=== PATIENT | female | born 1955 | race Caucasian/White ===

== ENCOUNTER 2016-12-12 14:59 | Emergency (ER) | payer MEDICAID ==
[~2016-12-12] VITALS: Ht 160 cm; Wt 46.3 kg
--- NOTE | 2016-12-12 16:43 | Urgent Treatment Center Report ---
History of Present Issue Date/Time Seen by Provider 12/12/16 1642 Visit Reason Pt arrived:Walked Presenting Problem:PT C/O ITCHY WATERY EYES, RUNNY NOSE, HEAD CONGESTION, AND ACHINESS X3 DAYS Location if Accident: Onset of symptoms date/time:/ or onset unknown for:MEDICAL HX UNKNOWN Have you (or family members/close friends) recently traveled outside the [place]? N If Yes, where/when: Have you had exposure to infectious disease within the past month? TB? Other? Specify: c/o "my allergies are a mess". Typically well controlled w/ zyrtec daily and albuterol inhaler PRN. Ran out of both 2 days ago. PCP, Dr. Ballard has and has a new pt appt w/ Dr. Prado but not until 01/02/17. "I just need those medicines is all". Reports hx on bronchitis "due to allergies" and albuterol inhaler helps "when I feel it starting". Currently primarily rhinorrhea, nasal congestion, head pressure. No cough, chest congestion, SOA or wheezing. Source patient Exam Limitations no limitations ALLERGIES Coded Allergies: penicillin G (Intermediate, I-HIVES 11/30/15) Sulfa (Sulfonamide Antibiotics) (I-HIVES 11/30/15) codeine (NA-NAUSEA/VOMITING 11/30/15) Home Medications Active Scripts Docusate Sodium (Colace 100MG Cap) 100 MG PO DAILY #10 CAP Prov: 03/23/16 HYDROCODONE/ACETAMINOPHEN (Cotter 5-325 Tablet) 1 TAB PO Q6HP PRN pain #15 TAB Prov: 03/23/16 Reported Medications ALBUTEROL (Ventolin Hfa) 2 PUFF IH Q4HP PRN BREATHING BUDESONIDE/FORMOTEROL FUMARATE (Symbicort 160-4.5 Mcg Inhaler) 1 PUFF IH DAILY History Medical History General CAD? No Angina: No [place]: No Hypertension? No Hyperlipidemia? No CHF? No DVT? No PE? No COPD? Yes Asthma? No Anemia? No GERD? No Gastric ulcers? No GI Bleed? No Hernia? No Thyroid Problems? No Hypothyroidism? No CVA? No Seizures? No Diabetes? No Renal Insuffiency? No UTI? Yes Stones? Yes BPH? No GB Disease: Yes Nephritic Syndrome? No Asplenia? No Hepatitis? No Sickle Cell Disease? No Arthritis? No Migraines? No Cataracts? No Glaucoma? No MRSA? No HIV? No TB? No Anxiety? No Depression? No Cancer? No More? No Immunization HX DT/Tetanus < 1 Year Ago Flu NEVER Pneumonia NEVER Surgical Hx Previous Surgery?Y SURG L ARM D/T SPIDER BIT LYMPH NODE BIOPSY Tubal Ligation GALLBLADDER Family History Family HX Diabetes No CAD No Hypertension Yes Hyperlipidemia Yes Cancer No TB Yes Social History Smoking Hx Smoker: Current Every Day Smoker Tobacco: Yes Type Cigarettes Packs/day < 1 Pack Alcohol Alcohol: No Review of Systems All Other Systems Reviewed and Negative Constitutional denies fever, denies malaise, denies weakness Eyes other (itchy "just starting"), denies drainage ENT see HPI. denies: ear pain, throat pain. Respiratory see HPI Psychiatric/Neurological denies headache Physical Exam Vital Signs Vital Signs Date Time Temp Pulse Resp B/P Pulse O2 O2 Flow FiO2 Ox Delivery Rate 12/12 1518 97.9 76 18 98/72 99 General Appearance no apparent distress, thin Eye Exam - bilateral eye normal exam Ear, Nose, Throat normal ENT inspection (x/ mild nasal congestion) Neck non-tender, supple Respiratory Status No: respiratory distress, productive cough, non productive cough. Lung Sounds anterior: lungs clear. posterior: lungs clear. bilateral: lungs clear. Cardiovascular regular rate/rhythm, no peripheral edema, no murmur Neurologic alert, oriented x 3 Skin normal color, warm/dry Lymphatic no adenopathy Medical Decision Making LABS/Meds/Orders Pt receiving controlled substance in ED? No Departure Departure Time of Disposition 1709 Disposition DC Home or Self Care(routine) Clinical Impression Primary Impression: Environmental allergies Secondary Impressions: Encounter for medication refill, Hx of bronchitis Condition STABLE Referrals Eve GARDINER,Dino Melendez Keep new pt appt for 01/02/17. Return to [facility] for new or worsening symptoms in the meantime. NO REFERRAL (Family) Patient Instructions DI for Allergic Rhinitis Additional Instructions Restart your zyrtec. If you ever run out again, it is available Over the counter. Albuterol inhaler as needed keep scheduled new patient appointment. Discharge Counseling Counseled pt/family regarding diagnosis, medications/RX, home care, follow up needs Prescriptions Current Visit Scripts CETIRIZINE HCL (Cetirizine 10MG) 10 MG PO DAILY #30 TAB ALBUTEROL (Proventil Hfa Inhaler) 1-2 PUFF IH Q4-6H PRN PRN SOA, wheezing #1 CAN at 6925
[2016-12-12 17:11] VITALS: BP 98/72
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
--- OUTSIDE RECORDS SUMMARY | 2017-01-04 05:13 | External Medical Summary Rpt ---
Author Author ANURAG Liang, ANURAG Liang Organization [employer] Address Unknown Phone Unavailable
--- OUTSIDE RECORDS SUMMARY | 2017-01-04 05:13 | External Medical Summary Rpt ---
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 Role Phone ARNOLD, ARNOLD Unavailable Unavailable ARNOLD, ARNOLD Unavailable Unavailable ARNOLD FRANCIE, ARNOLD Unavailable Unavailable FRANCIE ARNOLD FRANCIE, ARNOLD Unavailable Unavailable FRANCIE BEINEKE KAZ, BEINEKE Unavailable Unavailable KAZ BART L, BART L Unavailable Unavailable BART L, BART L Unavailable Unavailable HANCOCK, HANCOCK Unavailable Unavailable CHALINO JAZMINE, CHALINO Unavailable Unavailable JAZMINE [facility] Unavailable Unavailable INC, R[facility] TELLES ZHEN, TELLES ZHEN Unavailable Unavailable TELLES ZHEN, TELLES ZHEN Unavailable Unavailable [facility], Unavailable Unavailable [facility] Unavailable Unavailable IMAGING ASS, [facility] Unavailable Unavailable LABS, [...] Unavailable SOKAN BAB, SOKAN BAB Unavailable Unavailable SOTINGEAGERONIMO KAZ, Unavailable Unavailable SOTINGEABREN LOVING Unavailable Unavailable BREN VICENTE Unavailable Unavailable Purpose Continuity of Care Document - 06-07-2013 through 2016 Problems Code Diagnosis DOS Provider Status [id number] PAIN IN 11-09-2016 [place] [facility] SHOULDER IMAGING ASS J0190 ACUTE 07-08-2016 [facility] SINUSITIS UNSPECIFIED J209 ACUTE 07-08-2016 [facility] BRONCHITIS UNSPECIFIED J069 ACUTE UPPER 06-18-2016 [facility] RESPIRATORY INFECTION UNSPECIFIED G19239 UNSPECIFIED 05-19-2016 [facility] DACRYOCYSTI TIS RT LACRIMAL PASSAGE J449 CHRONIC 03-23-2016 [facility]STRUCTIVE [facility] PULMONARY INC DISEASE UNS 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 SACROCOCCYG 03-23-2016 [place] EAL MEDICAL DISORDERS IMAGING ASS NEC V591GWI CONTUSION 03-23-2016 [facility] LOWER BACK PHYSICIANS, & PELVIS PLLC INITIAL ENCOUNTER X2213MP UNSPECIFIED 03-23-2016 [place] INJURY MEDICAL LOWER BACK IMAGING ASS INITIAL ENCOUNTER Z720 TOBACCO USE 03-23-2016 [facility] INC M779 ENTHESOPATH 02-02-2016 [facility] MARMOLEJO Y UNSPECIFIED J929 PLEURAL 12-18-2015 [place] [facility] MEDICAL WITHOUT IMAGING ASS ASBESTOS R7611 NONSPECIFIC 12-18-2015 [place] [facility] TUBERCULIN INC SKIN TEST W/O ACT TB R918 OTHER 12-18-2015 [place] NONSPECIFIC MEDICAL ABNORMAL IMAGING ASS FINDING OF LUNG FIELD F05345 PAIN IN 11-30-2015 [place] [facility] FOOT [facility] K8326UR CONTUSION 11-30-2015 [facility] OF RIGHT PHYSICIANS, FOOT PLLC INITIAL ENCOUNTER W01121R UNSPECIFIED 11-30-2015 [place] INJURY MEDICAL RIGHT FOOT IMAGING ASS INITIAL ENCOUNTER H524 PRESBYOPIA 10-26-2015 TELLES ZHEN 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 [facility] OF INC UNSPECIFIED SHOULDER J029 ACUTE 09-01-2015 [facility] PHARYNGITIS PHYSICIANS, PLLC UNSPECIFIED K5289 OTH SPEC 07-14-2015 [facility] MARMOLEJO NONINFECTIV E GASTROENTER ITIS & COLITIS T46290 PAIN IN 07-14-2015 [facility] UNSPECIFIED [facility] SHOULDER INC M5430 SCIATICA 06-24-2015 [facility] MARMOLEJO UNSPECIFIED SIDE 82493 OSTEOARTHRO 12-08-2014 [facility] MARMOLEJO S INVLV MX SITES BUT NOT SPEC GEN 63480 OTHER ACUTE 10-21-2014 [facility] PAIN [facility]YS[facility] 53733 OTHER 10-21-2014 [facility] KERATOSIS 7802 SYNCOPE AND 10-21-2014 [facility] COLLAPSE 2382 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[facility] UNCERTAIN PHYSICIANS BEHAVIOR OF GROUP SKIN 4660 ACUTE 08-23-2014 [facility] MARMOLEJO BRONCHITIS 54866 ASTHMA 04-26-2014 [facility] MARMOLEJO UNSPECIFIED WITH STATUS ASTHMATICUS 42694 PAIN IN 04-03-2014 [facility] JOINT, PHYSICIANS SHOULDER GROUP REGION 5589 OTH&UNSPEC 01-12-2014 SOKAN BAB NONINFECTIO US GASTROENTER ITIS&COLITI S 87136 DIARRHEA 01-12-2014 SOGORDONN BAB 53203 OBSTRUCTIVE 01-09-2014 [facility] MARMOLEJO CHRONIC BRONCHITIS WITH EXACERBATIO N 34641 UNS 01-09-2014 [facility] MARMOLEJO GASTRITIS&G ASTRODUODIT IS W/O MENTION HEMORR 7243 SCIATICA 11-07-2013 [facility] MARMOLEJO 16933 PAIN IN 10-28-2013 [facility] JOINT PELVIC REGION AND THIGH 3674 PRESBYOPIA 06-07-2013 [facility] ANG Medications Na ND Rx Da Fi Fi Am Da Di Ph RX Ph St me C No te ll ll ou ys ag ar # ys at rm s nt no ma ic us Or Da si cy ia de te s n re d CE 16 04 05 30 30 00 OH Ac TI 57 -2 -2 .0 00 L- ti RI 10 7 6- 00 08 MA ve ZI 40 20 20 83 RT NE 25 17 17 90 0 24 PH HC AR L MA 10 CY MG #5 91 TA BL ET FL 60 04 05 16 30 00 OH Ac UT 43 -2 -1 .0 00 L- ti IC 20 6 9- 00 07 MA ve 26 20 20 47 RT ON 41 17 17 85 E 5 00 PH VT AR OP MA CY 50 #5 MC 91 G SP RA Y VE 00 04 05 18 17 00 OH Ac NT 17 -2 -1 .0 00 L- ti OL 30 6- 9- 00 07 MA ve IN 68 20 20 42 RT 22 17 17 08 HF 0 98 PH A AR 90 MA CY MC G #5 IN 91 HOPE LE R SY 00 04 05 10 30 00 OH Ac MB 18 -2 -1 .1 00 L- ti IC 60 6 9 99 07 MA ve OR 37 20 20 42 RT T 02 17 17 08 16 0 96 PH 0- AR 4. MA 5 CY MC G #5 IN 91 HOPE LE R LE 68 04 05 10 10 00 OH Ac VO 38 -1 -1 .0 00 L- ti FL 20 4- 2- 00 07 MA ve OX 01 20 20 48 RT AC 60 17 17 23 IN 1 29 PH AR 50 MA 0 CY MG #5 TA 91 BL ET ME 59 04 05 21 6 00 OH Ac TH 74 -1 -1 .0 00 L- ti YL 60 4- 2- 00 07 MA ve VT 00 20 20 48 RT ED 10 17 17 23 NI 3 34 PH SO AR LO MA NE CY 4 #5 MG 91 DO SE PK BE 51 04 05 30 10 00 OH Ac NZ 22 -1 -1 .0 00 L- ti ON 40 4- 2- 00 07 MA ve AT 00 20 20 48 RT AT 16 17 17 23 E 0 45 PH 20 AR 0 MA MG CY CA #5 PS 91 UL E AZ 59 03 04 6. 5 00 OH Ac IT 76 -2 -2 00 00 L- ti HR 23 5- 1- 0 07 MA ve OM 06 20 20 47 RT YC 00 17 17 84 IN 1 98 PH AR 25 MA 0 CY MG #5 TA 91 BL ET BE 51 03 04 30 10 00 OH Ac NZ 22 -2 -2 .0 00 L- ti ON 40 5- 1 00 07 MA ve AT 00 20 20 47 RT AT 16 17 17 84 E 0 99 PH 20 AR 0 MA MG CY CA #5 PS 91 UL E FL 60 03 04 16 30 00 [facility] UT 43 -2 -2 .0 00 L- ti IC 20 5- 1- 00 07 MA ve 26 20 20 47 RT ON 41 17 17 85 E 5 00 PH VT AR OP MA CY 50 #5 MC 91 G SP RA Y AC 60 03 04 30 8 00 [facility] YC 50 -2 -2 .0 00 L- ti LO 50 5- 1- 00 07 MA ve 04 20 20 47 RT R 20 17 17 85 20 6 01 PH 0 AR MG MA CY CA PS #5 UL 91 E CE 16 03 04 30 30 00 [facility] TI 57 -2 -2 .0 00 L- ti RI 10 5- 1- 00 08 MA ve ZI 40 20 20 83 RT NE 25 17 17 87 0 01 PH HC AR L MA 10 CY MG #5 91 TA BL ET DO 00 02 03 20 10 00 [facility] XY 71 -2 -2 .0 00 L- ti CY 30 3- 4- 00 07 MA ve CL 42 20 20 47 RT IN 95 17 17 26 E 0 07 PH MO AR NO MA CY 10 0 #5 MG 91 CA P VE 00 02 03 18 17 00 [facility] NT 17 -2 -2 .0 00 L- ti OL 30 5- 4- 00 07 MA ve IN 68 20 20 42 RT 22 17 17 08 HF 0 98 PH A AR 90 MA CY MC G #5 IN 91 HOPE LE R SY 00 02 03 10 30 00 [facility] MB 18 -2 -2 .1 00 L- ti IC 60 5- 4- 99 07 MA ve OR 37 20 20 42 RT T 02 17 17 08 16 0 96 PH 0- AR 4. MA 5 CY MC G #5 IN 91 HOPE LE R IB 68 02 03 90 30 00 OH Ac UP 64 -2 -2 .0 00 L- ti RO 50 5- 4- 00 07 MA ve FE 53 20 20 47 RT N 15 17 17 30 80 4 09 PH 0 AR MG MA CY TA BL #5 ET 91 DO 00 12 01 10 10 00 OH Ac C- 60 -2 -2 .0 00 L- ti Q- 30 8- 0- 00 08 MA ve LA 15 20 20 83 RT CE 03 16 17 74 2 75 PH 10 AR 0 MA MG CY SO #5 FT 91 GE L HY 00 12 01 [address] 40 -2 -2 .0 00 L- ti OC 60 8- 0- 00 02 MA ve OD 12 20 20 23 RT ON 30 16 17 84 -A 1 78 PH CE AR TA MA CT CY NO PH #5 EN 91 5- 32 5 Procedures Procedure DOS Code Location Performer Comment RADEX 93471 [place] [facility] SHOULDER 7 MEDICAL COMPLETE IMAGING MINIMUM 2 ASS VIEWS RADEX 84636 [facility] SACRUM & 6 [facility] COCCYX INC INC MINIMUM 2 VIEWS RADIOLOGI 86367 [facility] C EXAM 6 [facility] CHEST 2 INC INC VIEWS FRONTAL&L ATERAL RADEX 50571 [facility] FOOT 6 [facility] COMPLETE INC INC MINIMUM 3 VIEWS OPHTH 47676 [facility] 6 XM&EVAL COMPRHNSV ESTAB PT 1/> OCCUPATIO 43944 [facility] SPR[facility] NAL 6 [facility] THERAPY INC INC EVALUATIO N INJ J0702 [facility] PETTEY BETAMETHA 6 PHYSICIAN DIGNA SONE S GROUP ACETATE & PHOSPHATE 3 MG ARTHROCEN 09718 [facility] PET[facility] TESIS 6 PHYSICIAN DIGNA ASPIR&/IN S GROUP J MAJOR JT/BURSA W/O US RADEX 05655 [place] JUANCARLOS SHOULDER 6 MEDICAL KAZ COMPLETE IMAGING MINIMUM 2 [place] [address] [facility], SURG 5 [facility] PATHOLOGY GROSS&JAZMINE ROSCOPIC EXAM EXC B9 67098 [facility] SCHULSTAD LESION 5 PHYSICIAN DEMETRA MRGN XCP S GROUP SK TG T/A/L 3.1-4.0 CM RADEX 17216 [facility] SHOULDER 4 [facility] COMPLETE INC INC MINIMUM 2 VIEWS OPHTH 63276 [facility] 4 ANG ANG XM&EVAL COMPRHNSV ESTAB PT 1/> Encounters Encounter Start End Date Code Location Performer Type Date HOSPITAL [facility] - 7 7 [facility] OUTPATIEN INC T OFFICE 90236 [facility] OUTPATIEN 7 7 T VISIT 15 MINUTES OFFICE 29704 [facility] OUTPATI[facility] 7 7 T VISIT 15 MINUTES OFFICE 45399 [facility] OUT[facility] 7 7 T VISIT 10 MINUTES EMERGENCY 22123 [facility] ARELLAN[facility] 6 6 [facility]IS[facility] HIGH/URGE NT SEVERITY EMERGENCY 15569 [facility] 6 6 [facility] DEPARTMEN INC T VISIT LIMITED/M [facility] R[facility] - 6 6 [facility] OUTPATIEN INC T OFFICE 90310 [facility] JONESPATIEN 6 6 FRANCIE FRANCIE T VISIT 15 MINUTES OFFICE 51467 [facility] IQBAL OUTPATIEN 6 6 FRANCIE FRANCIE T VISIT 15 MINUTES OFFICE 83854 [facility] IQBAL OUTPATIEN 6 6 [facility] FRANCIE T VISIT 15 MINUTES [facility] - 6 6 [facility] OUT[facility] INC T EMERGENCY 24719 LUCHO MAHAN 6 6 PHYSICIAN Maryuri [facility]CCURDY [facility]PART[facility] T VISIT MODERATE SEVERITY EMERGENCY 38576 [facility] 6 6 [facility] DEPART[facility] T VISIT LOW/MODER SEVERITY [facility] - 6 6 [facility] OUTPATI[facility] INC T OFFICE 16686 FARIDA FARIDA LÓPEZ 6 6 FRANCIE FRANCIE T VISIT 15 MINUTES OFFICE 00997 [facility] LYSEAN OUTPATIEN 6 6 FRANCIE FRANCIE T VISIT 15 MINUTES [facility]OSPITAL [facility]AL - 6 6 [facility] OUTPATIEN INC T OFFICE 31345 [facility] PETTEDonato OUTPATIEN 6 6 PHYSICIAN JAM T VISIT S GROUP 15 MINUTES EMERGENCY 94222 LUCHO ALLRED 6 6 PHYSICIAN JAZMINE [facility]PART[facility] T VISIT MODERATE SEVERITY [facility]OSP[facility] - 6 6 [facility] OUT[facility] INC T EMERGENCY 27787 RACHEAL 6 6 [facility] DEPARTMEN INC T VISIT LOW/MODER SEVERITY OFFICE 26585 [facility] PETTEY OUTPATIEN 6 6 PHYSICIAN JAM T VISIT S GROUP 15 MINUTES HOSPITAL RACHEAL - 6 6 [facility] OUTPATIEN INC T OFFICE 86830 FARIDA LYSEAN LÓPEZ 6 6 FRANCIE FRANCIE T VISIT 15 MINUTES OFFICE 21485 F[facility]IDA LYSEAN LÓPEZ 6 6 FRANCIE FRANCIE T VISIT 15 MINUTES OFFICE 92311 FARIDA LÓPEZ 6 6 FRANCIE FRANCIE T VISIT 15 MINUTES OFFICE 53208 FARIDA LÓPEZ 5 5 FRANCIE FRANCIE T VISIT 15 MINUTES OFFICE 36504 FARIDA LÓPEZ 5 5 FRANCIE FRANCIE T VISIT 15 MINUTES OFFICE 40312 FARIDA LÓPEZ 5 5 FRANCIE FRANCIE T VISIT 15 MINUTES EMERGENCY 93852 BART Salmeron 5 5 DEPARTMEN T VISIT HIGH/URGE NT SEVERITY OFFICE 66305 [facility] SCHULSTAD OUTPATIEN 5 5 PHYSICIAN CAM T NEW 20 S GROUP MINUTES OFFICE 07053 [facility] IQBAL OUTPATISUNNY 5 5 FRANCIE FRANCIE T VISIT 15 MINUTES OFFICE 16344 [facility] IQBAL OUTPATIEN 5 5 FRANCIE FRANCIE T VISIT 15 MINUTES OFFICE 37831 [facility] PETTEY OUTPATIEN 5 5 PHYSICIAN JAM T NEW 30 S GROUP MINUTES OFFICE 14448 [facility] IQBAL OUTPATIEN 5 5 FRANCIE FRANCIE T VISIT 15 MINUTES OFFICE 57157 FARIDA LÓPEZ 4 4 FRANCIE FRANCIE T VISIT 15 MINUTES [facility] RACHEAL - 4 4 [facility] OUTPATIEN INC T OFFICE 49810 FARIDA LÓPEZ 4 4 FRANCIE FRANCIE T VISIT 15 MINUTES EMERGENCY 44704 SOKAN BAB SOKAN BAB 4 4 DEPARTMEN T VISIT MODERATE SEVERITY OFFICE 51612 FARIDA LÓPEZ 4 4 FRANCIE FRANCIE T VISIT 15 MINUTES OFFICE 53511 FARIDA LÓPEZ 4 4 FRANCIE FRANCIE T NEW 30 MINUTES EMERGENCY 07372 BREN FOWLER 4 4 DEPARTMEN T VISIT MODERATE SEVERITY
--- OUTSIDE RECORDS SUMMARY | 2017-01-04 05:13 | External Medical Summary Rpt ---
Demographics Preferred Language Tajik Marital Status Unknown Yazdanism Affiliation Unknown Race Unknown Ethnic Group Unknown Author Author ANURAG Address Unknown Phone Immunization No patient found.
--- OUTSIDE RECORDS SUMMARY | 2017-01-04 05:13 | External Medical Summary Rpt ---
Author Author , ANURAG OSBORN Address Unknown Phone [email or web address] Care Team Providers Care Cigar Inspector Name Role Phone ARNOLD, ARNOLD Unavailable Unavailable ARNOLD, ARNOLD Unavailable Unavailable ARNOLD FRANCIE, ARNOLD Unavailable Unavailable FRANCIE ARNOLD FRANCIE, ARNOLD Unavailable Unavailable FRANCIE BEINEKE KAZ, BEINEKE Unavailable Unavailable KAZ BART L, BART L Unavailable Unavailable BART L, BART L Unavailable Unavailable HANCOCK, HANCOCK Unavailable Unavailable CHALINO JAZMINE, CHALINO Unavailable Unavailable JAZMINE [facility] Unavailable Unavailable INC, [facility] TELLES ZHEN, TELLES ZHEN Unavailable Unavailable TELLES ZHEN, TELLES ZHEN Unavailable Unavailable [facility], Unavailable Unavailable [facility] Unavailable Unavailable IMAGING ASS, [facility] [...] 2016 Problems Code Diagnosis DOS Provider Status [id number] PAIN IN 11-09-2016 [facility] J0190 ACUTE 07-08-2016 ARNOLD SINUSITIS UNSPECIFIED J209 ACUTE 07-08-2016 ARNOLD BRONCHITIS UNSPECIFIED J069 ACUTE UPPER 06-18-2016 ARNOLD RESPIRATORY INFECTION UNSPECIFIED I35907 UNSPECIFIED 05-19-2016 SCIFRES DACRYOCYSTI TIS RT LACRIMAL PASSAGE J449 CHRONIC 03-23-2016 [facility] PULMONARY INC DISEASE UNS 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 M779 ENTHESOPATH 02-02-2016 [facility] MARMOLEJO Y UNSPECIFIED J929 PLEURAL 12-18-2015 [facility] WITHOUT IMAGING ASS ASBESTOS R7611 NONSPECIFIC 12-18-2015 [facility] TUBERCULIN INC SKIN TEST W/O ACT TB R918 OTHER 12-18-2015 [facility] NONSPECIFIC MEDICAL ABNORMAL IMAGING ASS FINDING OF LUNG FIELD F93586 PAIN IN 11-30-2015 [facility] FOOT [facility] E5175EY CONTUSION 11-30-2015 [facility] OF RIGHT PHYSICIANS, FOOT PLLC INITIAL ENCOUNTER K27312T UNSPECIFIED 11-30-2015 [facility] INJURY [facility] RIGHT FOOT IMAGING ASS INITIAL ENCOUNTER H524 PRESBYOPIA 10-26-2015 TELLES ZHEN 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 [facility] OF INC UNSPECIFIED SHOULDER J029 ACUTE 09-01-2015 [facility] PHARYNGITIS [facility]ANS, PLLC UNSPECIFIED K5289 OTH SPEC 07-14-2015 [facility] MARMOLEJO NONINFECTIV E GASTROENTER ITIS & COLITIS P03606 PAIN IN 07-14-2015 [facility] UNSPECIFIED [facility] SHOULDER INC M5430 SCIATICA 06-24-2015 [facility] MARMOLEJO UNSPECIFIED SIDE 17960 OSTEOARTHRO 12-08-2014 [facility] MARMOLEJO S INVLV MX SITES BUT NOT SPEC GEN 61768 OTHER ACUTE 10-21-2014 [facility] PAIN [facility] 95891 OTHER 10-21-2014 [facility] KERATOSIS 7802 SYNCOPE AND 10-21-2014 BART L COLLAPSE 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..] CE 16 04 05 30 30 00 OK Ac TI 57 -2 -2 .0 00 L- ti RI 10 7 6- 00 08 MA ve ZI 40 20 20 83 RT NE 25 17 17 90 0 24 PH HC AR L MA 10 CY MG #5 91 TA BL ET FL 60 04 05 16 30 00 OK Ac UT 43 -2 -1 .0 00 L- ti IC 20 6 9- 00 07 MA ve 26 20 20 47 RT ON 41 17 17 85 E 5 00 PH ID AR OP MA CY 50 #5 MC 91 G SP RA Y VE 00 04 05 18 17 00 OK Ac NT 17 -2 -1 .0 00 L- ti OL 30 6- 9- 00 07 MA ve IN 68 20 20 42 RT 22 17 17 08 HF 0 98 PH A AR 90 MA CY MC G #5 IN 91 HOPE LE R SY 00 04 05 10 30 00 OK Ac MB 18 -2 -1 .1 00 L- ti IC 60 6 9 99 07 MA ve OR 37 20 20 42 RT T 02 17 17 08 16 0 96 PH 0- AR 4. MA 5 CY MC G #5 IN 91 HOPE LE R LE 68 04 05 10 10 00 OK Ac VO 38 -1 -1 .0 00 L- ti FL 20 4- 2- 00 07 MA ve OX 01 20 20 48 RT AC 60 17 17 23 IN 1 29 PH AR 50 MA 0 CY MG #5 TA 91 BL ET ME 59 04 05 21 6 00 OK Ac TH 74 -1 -1 .0 00 L- ti YL 60 4- 2- 00 07 MA ve ID 00 20 20 48 RT ED 10 17 17 23 NI 3 34 PH SO AR LO MA NE CY 4 #5 MG 91 DO SE PK BE 51 04 05 30 10 00 OK Ac NZ 22 -1 -1 .0 00 L- ti ON 40 4- 2- 00 07 MA ve AT 00 20 20 48 RT AT 16 17 17 23 E 0 45 PH 20 AR 0 MA MG CY CA #5 PS 91 UL E AZ 59 03 04 6. 5 00 OK Ac IT 76 -2 -2 00 00 L- ti HR 23 5- 1- 0 07 MA ve OM 06 20 20 47 RT YC 00 17 17 84 IN 1 98 PH AR 25 MA 0 CY MG #5 TA 91 BL ET BE 51 03 04 30 10 00 OK Ac NZ 22 -2 -2 .0 00 L- ti ON 40 5- 1 00 07 MA ve AT 00 20 20 47 RT AT 16 17 17 84 E 0 99 PH 20 AR 0 MA MG CY CA #5 PS 91 UL E FL 60 03 04 16 30 00 [facility] UT 43 -2 -2 .0 00 L- ti IC 20 5- 1- 00 07 MA ve 26 20 20 47 RT ON 41 17 17 85 E 5 00 PH ID AR OP MA CY 50 #5 MC 91 G SP RA Y AC 60 03 04 30 8 00 [facility] YC 50 -2 -2 .0 00 L- ti LO 50 5- 1- 00 07 MA ve 04 20 20 47 RT R 20 17 17 85 20 6 01 PH 0 AR MG MA CY CA PS #5 UL 91 E CE 16 03 04 30 30 00 [facility] TI 57 -2 -2 .0 00 L- ti RI 10 5- 1- 00 08 MA ve ZI 40 20 20 83 RT NE 25 17 17 87 0 01 PH HC AR L MA 10 CY MG #5 91 TA BL ET DO 00 02 03 20 10 00 [facility] XY 71 -2 -2 .0 00 L- ti CY 30 3- 4- 00 07 MA ve CL 42 20 20 47 RT IN 95 17 17 26 E 0 07 PH MO AR NO MA CY 10 0 #5 MG 91 CA P VE 00 02 03 18 17 00 [facility] NT 17 -2 -2 .0 00 L- ti OL 30 5- 4- 00 07 MA ve IN 68 20 20 42 RT 22 17 17 08 HF 0 98 PH A AR 90 MA CY MC G #5 IN 91 HOPE LE R SY 00 02 03 10 30 00 [facility] MB 18 -2 -2 .1 00 L- ti IC 60 5- 4- 99 07 MA ve OR 37 20 20 42 RT T 02 17 17 08 16 0 96 PH 0- AR 4. MA 5 CY MC G #5 IN 91 HOPE LE R IB 68 02 03 90 30 00 OK Ac UP 64 -2 -2 .0 00 L- ti RO 50 5- 4- 00 07 MA ve FE 53 20 20 47 RT N 15 17 17 30 80 4 09 PH 0 AR MG MA CY TA BL #5 ET 91 DO 00 12 01 10 10 00 OK Ac C- 60 -2 -2 .0 00 L- ti Q- 30 8- 0- 00 08 MA ve LA 15 20 20 83 RT CE 03 16 17 74 2 75 PH 10 AR 0 MA MG CY SO #5 FT 91 GE L HY 00 12 01 [address] 40 -2 -2 .0 00 L- ti OC 60 8- 0- 00 02 MA ve OD 12 20 20 23 RT ON 30 16 17 84 -A 1 78 PH CE AR TA MA [place] CY NO PH #5 EN 91 5- 32 5 Procedures Procedure DOS Code Location Performer Comment RADEX 10668 [facility] 7 MEDICAL COMPLETE IMAGING MINIMUM 2 ASS VIEWS RADEX 75673 [facility] SACRUM & 6 [facility] COCCYX INC INC MINIMUM 2 VIEWS RADIOLOGI 05261 [facility] C EXAM 6 [facility] CHEST 2 INC INC VIEWS FRONTAL&L ATERAL RADEX 90602 [facility] FOOT 6 [facility] COMPLETE INC INC MINIMUM 3 VIEWS OPHTH 37665 [facility] 6 XM&EVAL COMPRHNSV ESTAB PT 1/> OCCUPATIO 04436 [facility] NAL 6 [facility] THERAPY INC INC EVALUATIO N INJ J0702 [facility] PETTEY BETAMETHA 6 PHYSICIAN DIGNA SONE S GROUP ACETATE & PHOSPHATE 3 MG ARTHROCEN 11332 [facility] TESIS 6 PHYSICIAN DIGNA ASPIR&/IN S GROUP J MAJOR JT/BURSA W/O US RADEX 51530 [facility] JUANCARL[facility] SHOULDER 6 MEDICAL KAZ COMPLETE IMAGING MINIMUM [place] [address] [facility] SURG 5 [facility] PATHOLOGY GROSS&JAZMINE ROSCOPIC EXAM EXC B9 21146 [facility] SCHULSTAD LESION 5 PHYSICIAN DEMETRA MRGN XCP S GROUP SK TG T/A/L 3.1-4.0 CM RADEX 52906 [facility] SHOULDER 4 [facility] COMPLETE INC INC MINIMUM 2 VIEWS OPHTH 80628 [facility] MEDICAL 4 ANG ANG XM&EVAL COMPRHNSV ESTAB PT 1/> Encounters Encounter Start End Date Code Location Performer Type Date HOSPITAL [facility] - 7 7 [facility] OUTPATIEN INC T OFFICE 80049 [facility] 7 7 T VISIT 15 MINUTES OFFICE 09802 [facility] OUT[facility] 7 7 T VISIT 15 MINUTES OFFICE 58386 [facility] T VISIT 10 MINUTES EMERGENCY 81600 [facility] ARELLANO 6 6 [facility] T VISIT HIGH/URGE NT SEVERITY EMERGENCY 72560 [facility] 6 6 [facility] DEPARTMEN INC T VISIT LIMITED/M [facility]OB H[facility]PITAL [facility] - 6 6 [facility] OUTPATIEN INC T OFFICE 21696 [facility] JONESPATIEN 6 6 FRANCIE FRANCIE T VISIT 15 MINUTES OFFICE 82505 [facility] OUTPATIEN 6 6 FRANCIE FRANCIE T VISIT 15 MINUTES OFFICE 45142 [facility] OUTPATI[facility] 6 6 FRANCIE FRANCIE T VISIT 15 MINUTES HOSPITAL [facility] - 6 6 [facility] OUTPATIEN INC T EMERGENCY 78447 [facility] MAHAN 6 6 PHYSICIAN Maryuri MCCURDY DEPARTMEN S, PLLC T VISIT MODERATE SEVERITY EMERGENCY 45737 [facility] 6 6 [facility] DEPARTMEN INC T VISIT LOW/MODER SEVERITY HOSPITAL [facility] - 6 6 [facility] OUTPATIEN INC T OFFICE 61889 [facility] FARIDA LÓPEZ 6 6 FRANCIE FRANCIE T VISIT 15 MINUTES OFFICE 89540 [facility] LYSEAN OUTPATIEN 6 6 FRANCIE FRANCIE T VISIT 15 MINUTES HOSPITAL [facility] - 6 6 [facility] OUTPATIEN INC T OFFICE 67443 [facility] PETTEDonato OUTPATIEN 6 6 PHYSICIAN JAM T VISIT S GROUP 15 MINUTES EMERGENCY 98974 [facility] ALLRED 6 6 PHYSICIAN JAZMINE DEPARTMEN S, PLLC T VISIT MODERATE SEVERITY HOSPITAL [facility] - 6 6 [facility] OUTPATIEN INC T EMERGENCY 26624 [facility] 6 6 [facility] DEPARTMEN INC T VISIT LOW/MODER SEVERITY OFFICE 77669 [facility] PETTEY OUTPATIEN 6 6 PHYSICIAN JAM T VISIT S GROUP 15 MINUTES HOSPITAL [facility] - 6 6 [facility] OUTPATIEN INC T OFFICE 28132 [facility] LYSEAN LÓPEZ 6 6 FRANCIE FRANCIE T VISIT 15 MINUTES OFFICE 66039 [facility] LYSEAN LÓPEZ 6 6 FRANCIE FRANCIE T VISIT 15 MINUTES OFFICE 76207 [facility] LÓPEZ 6 6 FRANCIE FRANCIE T VISIT 15 MINUTES OFFICE 23334 [facility] LÓPEZ 5 5 FRANCIE FRANCIE T VISIT 15 MINUTES OFFICE 08829 [facility] LÓPEZ 5 5 FRANCIE FRANCIE T VISIT 15 MINUTES OFFICE 25993 F[facility] LÓPEZ 5 5 FRANCIE FRANCIE T VISIT 15 MINUTES EMERGENCY 41547 [facility] Salmeron 5 5 DEPARTMEN T VISIT HIGH/URGE NT SEVERITY OFFICE 14673 [facility] SCHULSTAD OUTPATIEN 5 5 PHYSICIAN CAM T NEW 20 S GROUP MINUTES OFFICE 22209 [facility]BAL OUTPATISUNNY 5 5 FRANCIE FRANCIE T VISIT 15 MINUTES OFFICE 48686 [facility] IQBAL OUTPATIEN 5 5 FRANCIE FRANCIE T VISIT 15 MINUTES OFFICE 31774 [facility] PETTEY OUTPATIEN 5 5 PHYSICIAN JAM T NEW 30 S GROUP MINUTES OFFICE 88340 [facility] IQBAL OUTPATIEN 5 5 FRANCIE FRANCIE T VISIT 15 MINUTES OFFICE 24770 [facility]AR[facility] LÓPEZ 4 4 FRANCIE FRANCIE T VISIT 15 MINUTES [facility] R[facility] - 4 4 [facility] OUTPATIEN INC T OFFICE 53538 FARIDA LÓPEZ 4 4 FRANCIE FRANCIE T VISIT 15 MINUTES EMERGENCY 25178 [facility] SOKAN BAB 4 4 DEPARTMEN T VISIT MODERATE SEVERITY OFFICE 49328 [facility] LÓPEZ 4 4 FRANCIE FRANCIE T VISIT 15 MINUTES OFFICE 80641 FARIDA LÓPEZ 4 4 FRANCIE FRANCIE T NEW 30 MINUTES EMERGENCY 08690 BREN FOWLER 4 4 DEPARTMEN T VISIT MODERATE SEVERITY
--- OUTSIDE RECORDS SUMMARY | 2017-01-04 05:13 | External Medical Summary Rpt ---
Demographics Preferred Language Portuguese Marital Status Unknown Advent Affiliation Unknown Race Unknown Ethnic Group Unknown Author Author ANURAG Address Unknown Phone Immunization No patient found.
== END 2016-12-12 17:14 | disposition home or self-care (01) ==
LOC: UTC 14:59
DX: J30.2 Other seasonal allergic rhinitis (principal); F17.211 Nicotine dependence, cigarettes, in remission; Z76.0 Encounter for issue of repeat prescription; Z79.51 Long term (current) use of inhaled steroids; Z79.899 Other long term (current) drug therapy; J44.9 Chronic obstructive pulmonary disease, unspecified

== ENCOUNTER → 2017-01-05 | Outpatient (CLI) | payer MEDICAID ==
[~2017-01-05] MED LIST: BACTRIM DS 8001 TAB PO; CETIRIZINE HCL10 MG PO; CIPRO 500MG TA500 MG PO; COLACE GENERIC100 MG PO; ERY-TAB333 MG PO; ESTROGEN PO; FLEXERIL10 MG PO; HYCODAN 1.5 MG480 ML PO; IBU-8800 MG PO; KEFLEX 500MG.500 MG PO; LORTAB 5/500 501 TAB PO; LORTAB 500 MG-71 TAB PO; MEDROL 4MG. DOSE4 MG PO; NAPROSYN500 M1 PO; NOMEDS *; NOMEDS XX; NORCO 325 MG-51 TAB PO; PREDNISONE 20MG20 MG PO; PROVENTIL0.09 MG/A1 IH; ROBAXIN-750750 MG PO; SYMBICORT1 AE1 IH; TESSALON PERLE100 M1 PO; TESSALON PERLE100 MG PO; TRAMADOL 50MG T50 MG PO; ULTRAM50 MG PO; VENTOLIN H0.09 MG/AC IH; VICODIN 5/500 T1 TAB PO; ZITHROMAX Z PA250 MG PO; ZOFRAN4 MG PO
[2017-01-05 16:58] LABS: HEMOGLOBIN 14.7 g/dL (12.2-16.2); LYMPH # 2.4 K/mm3 (0.7-4.5); LYMPH % 35.4 % (10-50.0)
[2017-01-05 18:45] LABS: BUN 9 mg/dL (7-18)
[2017-01-05 18:47] LABS: GFR (ESTIMATED) 86 ML/MIN (59-)
== END ==
LOC: LAB 16:16
PROVIDERS: Emergency Medicine
DX: Z00.00 Encounter for general adult medical examination without abnormal findings (principal); M25.511 Pain in right shoulder; E55.9 Vitamin D deficiency, unspecified; J44.9 Chronic obstructive pulmonary disease, unspecified

== ENCOUNTER → 2017-01-18 | Outpatient (CLI) | payer MEDICAID ==
--- NOTE | 2017-01-18 15:13 | RADIOLOGY REPORT PS360 ---
BONE DENSITOMETRY(HIP:LT SPINE HISTORY: POST MENOPAUSAL ORDERING PHYSICIAN: Dino Prado MD PATIENT AGE: 61 years COMPARISON: None FINDINGS: The BMD measured at the Right or left femoral neck is 0.078 g/cm squared with a T score of -2.4. This is considered Osteopenic according to the World Health Organization criteria. Fracture risk is Moderate. Treatment is advised. IMPRESSION: Osteopenia. Recommend follow-up exam December 2018
== END ==
LOC: RAD 11:00
DX: Z78.0 Asymptomatic menopausal state (principal); Z13.820 Encounter for screening for osteoporosis

== ENCOUNTER → 2017-02-06 | Outpatient (CLI) | payer MEDICAID ==
[2017-02-06 13:52] LABS: AMPHETAMINES/METAMPHETAMINES NEGATIVE ng/mL (<1000)
== END ==
LOC: LAB 13:00
PROVIDERS: Emergency Medicine
DX: Z79.899 Other long term (current) drug therapy (principal)

== ENCOUNTER → 2017-03-06 | Outpatient (CLI) | payer MEDICAID ==
[2017-03-06 22:51] LABS: AMPHETAMINES/METAMPHETAMINES NEGATIVE ng/mL (<1000)
== END ==
LOC: LAB 15:42
PROVIDERS: Emergency Medicine
DX: Z79.899 Other long term (current) drug therapy (principal)